=== PATIENT | male | born 1980 ===

== ENCOUNTER 2021-06-16 16:31 | Emergency (ER) | payer OTHER ==
[~2021-06-16] VITALS: Ht 172.7 cm; Wt 90.7 kg
[2021-06-16 17:36] VITALS: BP 133/87
[2021-06-16] MEDS ORDERED: ACETAMINOPHEN 500 MG TAB PO ONE (17:45)
[2021-06-16 20:28] LABS: Urine WBC None Seen /hpf (0 - 3)
[2021-06-16 21:00] LABS: Urine Bacteria NONE SEEN /hpf (None Seen); Urine Blood Negative /uL (Negative); Urine Mucus FEW (None Seen); Urine Specific Gravity 1.017 (1.001-1.035)
== END 2021-06-16 21:33 ==
LOC: EDBD 16:31 → ER 16:40 → EEVIPCON 16:40 → ER 21:33
DX: N43.3 Hydrocele, unspecified (principal)
CPT/HCPCS: 76870; 81001